=== PATIENT | male | born 1995 | race Caucasian/White ===

== ENCOUNTER 2022-09-14 08:08 | Outpatient (CLI) | payer BC, SELFPAY ==
--- NOTE | 2022-09-14 08:15 | CRLHL7_ITS ---
For Patients: As a result of the Century Cures Act, medical imaging exams and procedure reports are released immediately into your electronic medical record. You may view this report before your referring provider. If you have questions, please contact your health care provider. Indication: LT SHOULDER PAIN - PRE MRI Comparison: None. Procedure : Informed consent was obtained. The site was marked. Time-out was performed. The skin of the left shoulder was cleansed with ChloraPrep. A sterile drape was placed. 8 cc of 1 percent lidocaine was administered for superficial anesthesia. Subsequently a 22 gauge spinal needle was introduced into the left shoulder joint under intermittent fluoroscopic guidance. Injection of 2 cc nonionic Omnipaque 240 contrast confirmed intra-articular location. Subsequently 11 cc of dilute gadolinium were injected. The needle was removed and hemostasis achieved with direct pressure. A dressing was placed. The patient tolerated the procedure well without immediate complication and was immediately sent to MRI for imaging. Total fluoroscopy time 43 seconds. Impression: Successful fluoroscopically guided left shoulder arthrogram for MRI. Dictated by Parker Chatterjee MD @ 09/14/2022 10:15:47 AM (Electronically Signed)
--- NOTE | 2022-09-14 09:15 | MR_ITS ---
[address] [address] Phone:?[phone] Fax:?[phone] Referring Physician Information: Vinay Garcia M.D. [id number] [facility] [address] Phone:?[phone] Fax:?[phone] Patient:?Zehra Fountain D.O.B:?1995 Sex:?Male Phone:?[phone] [facility] MRN:?[id number] Exam Date:?09/14/2022 ? EXAM: MR ARTHROGRAM of the LEFT SHOULDER CLINICAL HISTORY: Left shoulder pain. Suspected labral tear. COMPARISON: None available. TECHNICAL: Exam performed after fluoroscopically-guided gadolinium arthrography of the glenohumeral joint of the left shoulder, reported separately. MRI sequences of the left shoulder: coronal obliques: PD, PD FS, T1FS sagittal obliques: PDFS, T2 axials: PD, PDFS FINDINGS: Bones: No fracture or suspicious bone marrow signal abnormality. Coracoacromial arch: Acromion: No os acromiale. Type I-II acromion. Acromiohumeral space: The bony distance is unremarkable. Coracohumeral space: The bony distance is unremarkable. Acromioclavicular joint: No acute injury, arthropathy, or inferior hypertrophy. Coracoclavicular ligament: The coracoclavicular ligament is intact. Rotator cuff and muscles/tendons: Supraspinatus: The supraspinatus tendon and muscle are intact. Infraspinatus: The infraspinatus tendon and muscle are intact. Teres minor: The teres minor tendon and muscle are intact. Subscapularis: The subscapularis tendon and muscle are intact. Labrum: There is complex tear of the labrum from the 2 o'clock position anterosuperiorly through 6 o'clock position inferiorly best seen on coronal series 5 images 15 through 11 and axial series 3 images 15 through 20 with associated stripping of the anterior scapular periosteum without significant displacement of the torn labral tissue. In addition, shallow short segment slitlike undersurface tear of the labrum at the 10:30 o'clock position posterosuperiorly best seen on coronal series 6 image 16. Proximal biceps tendon, long head and short heads: The long and short heads of the proximal biceps tendon are intact. Glenohumeral joint: Intra-articular contrast is present secondary to arthrogram injection. 1.8 cm in craniocaudad dimension by 1.5 cm in AP dimension area of full- thickness chondral fissuring over the anterior and anteroinferior portions of the glenoid with associated degenerative subchondral cystic changes. No convincing evidence of capsular edema or thickening. The coracohumeral, superior glenohumeral, middle glenohumeral, and inferior glenohumeral ligaments are intact. Bursae: Subacromial-subdeltoid: No convincing subacromial bursal thickening/bursitis. Subcoracoid: No convincing subcoracoid bursal thickening/bursitis. IMPRESSION: 1. Complex labral tear from the 2 o'clock position anterosuperiorly through 6 o'clock position inferiorly with associated stripping of the anterior scapular periosteum without significant displacement of the torn labral tissue. In addition, short segment shallow slitlike undersurface tear of the labrum at the 10:30 o'clock position posterosuperiorly. 2. 1.8 x 1.5 cm area of full-thickness chondral fissuring over the anterior and anteroinferior portions of the glenoid with associated degenerative subchondral cystic changes. 3. Intact rotator cuff and biceps tendon. No Hill-Sachs or reverse Hill-Sachs lesion. RCB Electronically signed on 09/14/2022 1:31:00 PM by Shyam Vuong M.D.
== END 2022-09-14 08:09 | disposition home or self-care (01) ==
PROVIDERS: PCP Family Medicine; Visit Provider Orthopaedic Surgery Sports Medicine
DX: M25.512 Pain in left shoulder (principal); S43.402A Unspecified sprain of left shoulder joint, initial encounter
CPT/HCPCS: 23350; 73222; 77002; A9575; J2001; Q9966

== ENCOUNTER 2022-10-14 10:34 | Day surgery (SDC) | payer BC, SELFPAY ==
[2022-10-14] VITALS (14 sets, daily range): BP systolic 110–146; BP diastolic 69–82; PULSE 56–77; RESP 16; TEMP 36.4–36.9; O2SAT 95–99; BMI 27.3
[2022-10-14] MEDS: LACTATED RINGERS 1000 ML 1,000 ML 100 ML IV ×2 (10:00→14:50)
[2022-10-14] MEDS: SODIUM CHLORIDE 0.9 % (FLUSH) 10 ML SYRINGE IVF (11:07)
[2022-10-14] MEDS: fentaNYL 100 MCG/2 ML inj IVP (12:56)
[2022-10-14] MEDS: MIDAZOLAM HCL 1 MG/ML inj IVP (12:56)
--- NOTE | 2022-10-14 13:17 | SUR.PREOP ---
TIME?OUT:?1255 PT/RN/MDA?VERIFICATION?OF?SURGICAL?SITE left shoulder,?PROCEDURE nerve block,?AND?CONSENT OBTAINED?PRIOR?TO?INVASIVE?PROCEDURE.
[2022-10-14] MEDS: CEFAZOLIN 2 GM in 0.9 % SODIUM CHLORIDE Mini-bag 100 ML IVPB (13:22)
--- NOTE | 2022-10-14 13:22 | P.NB_ITS ---
Nerve Block Nerve Block Time Seen by Provider: 12:59 Date Seen: 10/14/22 Type of block requested by surgeon for post-operative analgesia: supraclavicular Side: left Time out performed: Yes Verification of patient name: Yes Verification of date of : Yes Site marking: site marked Name of person performing procedure: Surinder Continuous monitoring Was continuous monitoring of O2 sat, B/P, direct support worker, recorded every 15 minutes?: Yes Procedure Checklist: sterile prep, needles and gloves Ultrasound guided. Images saved: Yes Medications given in 5ml increments after negative aspiration: Ropivicaine %: 0.5 mL: 20 Needle gauge: 22 Decadron (mg): 10 Precedex (mcg): 25 Patient tolerated procedure well: Yes Block Charges Block Charge (with Pro Fee): Brachial Plexus Use of Ultrasound Machine for Block: Yes- US Guidance/pain block
--- NOTE | 2022-10-14 13:30 | W.ANESCHARGE ---
Anesthesia Charges Start Date/Time Anesthesia Start Date: 10/14/22 Anesthesia Start Time: 13:07 Stop Date/Time Anesthesia Stop Date: 10/14/22 Anesthesia Stop Time: 14:54 Summary Emergency: No
[2022-10-14] MEDS: EPINEPHrine 1 MG in SODIUM CHLORIDE IRRIG SOLUTION 3,000 ML 9003 MG IRRIGATION ×3 (13:44→14:20)
[2022-10-14] MEDS: EPINEPHrine 1 MG in SODIUM CHLORIDE IRRIG SOLUTION 3,000 ML 2000 MG IRRIGATION (14:29)
--- NOTE | 2022-10-14 14:57 | W.ANESCHARGE ---
Anesthesia Charges Start Date/Time Anesthesia Start Date: 10/14/22 Anesthesia Start Time: 13:07 Stop Date/Time Anesthesia Stop Date: 10/14/22 Anesthesia Stop Time: 14:54 Summary Emergency: No
--- NOTE | 2022-10-14 16:08 | PM.ORPRC ---
Procedure Note Date of procedure: 10/14/22 Procedure: PREOPERATIVE DIAGNOSES: 1. Left shoulder pain with anterior labral tear POSTOPERATIVE DIAGNOSES: 1. Left shoulder pain with anterior labral tear 2. Left shoulder full-thickness chondral defect central anterior glenoid measuring 20 x 20 mm NAME OF OPERATION: 1. Left shoulder arthroscopic Bankart repair 2. Left shoulder chondroplasty loose chondral flaps anterior central glenoid SURGEON: Vinay Garcia MD [employer]: Uri OROZ[employer]. Of note, a skilled medical research assistant was critical for this case to aide in patient positioning, suture manipulation, arm positioning, instrument positioning, and closure. ANESTHESIA: General plus preoperative supraclavicular block. EBL: Less than 50 mL IMPLANTS: Arthrex 1.6 mm knotless FiberTak (x3) COMPLICATIONS: None evident INDICATIONS: The patient is a pleasant, 27-year-old male who has experienced left shoulder pain with loading the shoulder such as weightlifting or other similar type of activities. He does recall multiple shoulder injuries in the remote past. He is not certain if these included dislocation/instability events per se. Workup of the shoulder included an MR arthrogram which revealed an anterior labral tear. Given these findings, and his ongoing pain and failure of nonoperative management, surgery is indicated for labral repair. FINDINGS: Exam under anesthesia revealed grade 2 anterior drawer. Grade 1 posterior drawer. Negative sulcus sign. The diagnostic arthroscopy revealed full-thickness chondral defect with loose chondral flaps of the anterior central glenoid measuring approximately 20 x 20 mm. This was an impending loose body. He also showed anterior labral tearing from approximately 2:00-5:30 o'clock position. Subscapularis was intact. No evidence loose bodies present. Supraspinatus intact. Normal sail sign. Humeral articular cartilage was healthy. PROCEDURE: Following a thorough discussion of risks, benefits, and alternatives, consent was obtained and the operative shoulder was marked. The patient was brought to the operating room and placed supine on the operating table. Induction of anesthesia was completed after preoperative supraclavicular block was administered in preop holding. Appropriate time out was performed identifying proper patient, site, and procedure. 2 g IV Ancef was administered within 1 hour of incision preoperatively. The left upper extremity was prepped and draped in the appropriate sterile fashion using ChloraPrep. This was after the patient was positioned in the lateral decubitus position with all bony prominences well padded and axillary roll placed. The arm was placed with 10 lb of traction in approximately 35-45 degree angle. The shoulder was insufflated with 20mL of normal saline via an 18g spinal needle from a posterior approach. An 11 blade skin incision allowed a blunt trochar to be inserted and diagnostic arthroscopy to be performed with the findings as noted above. An anterior portal was established with an outside in technique. This allowed the probe to be inserted and confirm the diagnostic arthroscopic findings. We then created an anterior superior portal to help with shuttling in the rotator interval. A liberator elevator was utilized for tissue preparation along with a rasp and shaver. At this juncture, further probing revealed a full-thickness chondral defect of the anterior central glenoid. This was a loose fragment that was an impending loose body. This was debrided/grasped with a Snyder and removed. The remaining edges were debrided with a combination of shaver and ring curette. A low anterior inferior anchor was placed at approximately the 5:00 o'clock position using a knotless FiberTak. The inferior capsule was captured with a suture Lasso. The sutures shuttled accordingly. Prior to cinching this down tight, 2 more anchors were placed up the clock face at approximately 4 and 3:00 a.m., respectively. These sutures were also shuttled and cinched. We then were able to sequentially cinched the sutures with excellent reapproximation of the labrum to the anterior glenoid. The anterior central anchor was placed somewhat on the glenoid face due to the chondral defect. The shoulder remained stable following the procedure. The labrum had excellent security night it was repaired. No crepitation was palpated with range of motion of the shoulder. Instruments were removed, excess fluid was drained, and closure performed with 4 Monocryl and Steri-Strips. Dressings were applied. Sling was applied. The patient was awoken from anesthesia and transferred to the PACU in stable condition. A skilled medical research assistant was critical for this case to aid in patient positioning, limb positioning, skill to manipulate arthroscopic instruments and camera, suture management, patient safety, and closure. PLAN: 1. Elbow, forearm, wrist and digit range of motion as tolerated. 2. Encouraged ice. 3. Percocet for pain as needed. 4. Sling at all times except for ROM and showering. 5. Follow up with PA visit in 1-2 weeks for wound check. Initiate physical therapy approximately 2-3 weeks postop for gentle passive range of motion.
== END 2022-10-14 16:39 | disposition home or self-care (01) ==
PROVIDERS: PCP Family Medicine; Visit Provider Orthopaedic Surgery Sports Medicine
PROC: (CPT 29805; principal; 2022-10-14 13:00)
DX: S43.432A Superior glenoid labrum lesion of left shoulder, initial encounter (principal); M25.512 Pain in left shoulder; M24.012 Loose body in left shoulder
CPT/HCPCS: 29807; 29806; 01630; 64415; 76942; C1713; J0171; J0330; J0690; J1100; J2250; J2405; J2704; J2795; J3010; J7120; L3670

== ENCOUNTER 2022-12-22 10:00 | Outpatient (RCR) | payer BC, SELFPAY | END 2023-01-17 10:36 | disposition home or self-care (01) | PROVIDERS: PCP Family Medicine; Visit Provider Physician Assistant Surgical | DX: M25.512 Pain in left shoulder (principal); Z74.09 Other reduced mobility; Z98.890 Other specified postprocedural states; Z51.89 Encounter for other specified aftercare | CPT/HCPCS: 97110; 97140; 97161 ==